=== PATIENT | female | born 1955 | race Caucasian/White ===

== ENCOUNTER → 2021-02-04 | Outpatient (CLI) | payer MEDICARE, OTHER ==
[~2021-02-04] MED LIST: ALENDRONATE SOD35 MG PO; ALPHAGAN P5 ML EYEBOTH; ATORVASTATIN CA40 MG PO; BENICAR40 MG PO; CATAPRES 0.1MG0.1 MG PO; HYDROCHLOROTH12.5 MG PO; LATANOPROST2.5 ML OU; VITAMIN D21250 MCG PO
[2021-02-04 09:32] LABS: HEMOGLOBIN 13.9 gm/dl (12.3-15.3); RED BLOOD COUNT 4.43 M/UL (4.00-5.10); WHITE BLOOD COUNT 7.5 K/UL (4.5-11.0)
[2021-02-04 09:57] LABS: BUN/CREATININE RATIO 23 (0-10)
== END ==
LOC: CT 09:04
PROVIDERS: Internal Medicine Hematology & Oncology
DX: C34.31 Malignant neoplasm of lower lobe, right bronchus or lung (principal); J94.8 Other specified pleural conditions; Z90.2 Acquired absence of lung [part of]
CPT/HCPCS: 36415; 71260; 80053; 85025; Q9963

== ENCOUNTER → 2021-08-06 | Outpatient (CLI) | payer MEDICARE, OTHER | LOC: CT 09:00 | DX: C34.31 Malignant neoplasm of lower lobe, right bronchus or lung (principal) | CPT/HCPCS: 36415; 71260; 82565; Q9967 ==

== ENCOUNTER → 2021-12-21 | Outpatient (CLI) | payer MEDICARE, OTHER | LOC: MAMO 08:10 | DX: Z12.31 Encounter for screening mammogram for malignant neoplasm of breast (principal); M85.9 Disorder of bone density and structure, unspecified | CPT/HCPCS: 77063; 77067; 77080 ==